=== PATIENT | male | born 1990 | race Caucasian/White ===

== ENCOUNTER 2016-09-05 23:08 | Emergency (ER) | payer OTHER ==
[~2016-09-05 23:08] MED LIST: BACTRIM DS TABL1 TAB PO; CIPRO PO; DENAVIR TP; FLAGYL PO; FLEXERIL PO; VICODIN 5/500 T1 TAB PO; ZYRTEC PO
== END 2016-09-05 23:10 | disposition left against medical advice (07) ==
LOC: CFTX 23:08
DX: Z53.21 Procedure and treatment not carried out due to patient leaving prior to being seen by health care provider (principal)